=== PATIENT | male | born 1955 | race Caucasian/White ===

== ENCOUNTER 2017-05-11 10:55 | Day surgery (SDC) | payer BC ==
[2017-05-11] MEDS ORDERED: Lactated Ringers 1,000 ML IV SCH (11:00)
[2017-05-11] MEDS ORDERED: Sodium Chloride 0.9% 5 ML Syringe FLUSH PRN (11:00)
[2017-05-11] MEDS ORDERED: Propofol 200 MG/20 ML SDV ONE (13:19)
[2017-05-11] MEDS ORDERED: Midazolam 1 MG/ML 2 ML SDV ONE (13:19)
--- NOTE | 2017-05-11 14:02 | PCM.PN ---
- General Info Date of Service: 05/11/17 - Review of Systems Systems Review Comment:: 62 y/o male here for his first screening colonoscopy. He is medically stable to proceed. I have discussed the proposed colonoscopy with the patient. Risks such as but not limited to bleeding and GI injury discussed and he agrees to proceed. - Patient Data Vitals - Most Recent: Last Vital Signs Temp 97.7 F 05/11/17 11:46 Pulse 58 L 05/11/17 11:46 Resp 14 05/11/17 11:46 BP 114/70 05/11/17 11:46 Pulse Ox 97 05/11/17 11:46 Weight - Most Recent: 100.698 kg Med Orders - Current: Current Medications Lactated Ringer's (Ringers, Lactated) 1,000 mls @ 50 mls/hr IV ASDIRECTED EMILY Last Admin: 05/11/17 12:04 Dose: 50 mls/hr Sodium Chloride (Syrex Flush) 5 ml FLUSH Q8HR PRN PRN Reason: Keep Vein Open - Problem List Review Problem List Initiated/Reviewed/Updated: Yes - My Orders Last 24 Hours: My Active Orders 05/11/17 11:00 Patient to Empty Bladder [RC] ASDIRECTED Peripheral IV Care [RC] . DIRECTED Verify Patient Consent Obtain [RC] ASDIRECTED Lactated Ringers [Ringers, Lactated] 1,000 ml IV ASDIRECTED Sodium Chloride 0.9% [Syrex Flush] 5 ml FLUSH Q8HR PRN Peripheral IV Insertion Adult [OM.PC] Routine 05/11/17 Breakfast Nothing Per Oral Diet [DIET] - Assessment Assessment:: Colon Cancer Screening - Plan Plan:: Colonoscopy
[2017-05-11] MEDS ORDERED: Propofol 200 MG/20 ML SDV IV ONE (14:16)
[2017-05-11] MEDS ORDERED: Midazolam 1 MG/ML 2 ML SDV IV ONE (14:16)
--- NOTE | 2017-05-11 14:54 | PCM.OPNOTE ---
- General Post-Op/Procedure Note Date of Surgery/Procedure: 05/11/17 Operative Procedure(s): Colonoscopy with Polypectomy Findings: Small Cecal Polyp Pre Op Diagnosis: Colon Cancer Screening Post-Op Diagnosis: Colon Polyp Anesthesia Technique: MAC Primary Surgeon: Mando Rosenbaum Pathology: Cecal Polyp Output, Urine Amount: 0 EBL in mLs: 0 Complications: None Condition: Good
--- NOTE | 2017-05-11 19:17 | OR ---
DATE OF SURGERY: 05/11/2017 SURGEON: Mando Rosenbaum MD REFERRING PROVIDER: JAYLYN Veliz PREOPERATIVE DIAGNOSIS: Colon cancer screening. POSTOPERATIVE DIAGNOSIS: Colon polyp. OPERATION PERFORMED: Colonoscopy with polypectomy. INDICATIONS FOR SURGERY: This patient is seen today for his initial screening colonoscopy. He denies a family history of colon cancer. He has not had any previous colon exam. FINDINGS: A single polyp was noted in the colon today, it is in the cecum, it is irregular in shape, and 7 mm in size. The remainder of the colon appears normal. PROCEDURE: The patient was taken to the operating room. He was given intravenous sedation, and with him in the left lateral decubitus position, digital rectal exam was performed showing no rectal masses. The Olympus colonoscope was inserted into the rectum and retroflexed examination of the rectal canal was performed. The scope was then carefully advanced under direct visualization through the entire length of the colon until cecum was reached. Cecal acquisition is confirmed by noting the normal internal cecal anatomy including the appendiceal orifice and the ileocecal valve, and also noting the light to transilluminate the abdominal wall in the right lower quadrant. The ileocecal valve was cannulated, and the terminal ilium also examined which appeared normal. In the cecum, the above-described polyp was identified. It was removed with a cautery snare and retrieved into a polyp trap. The scope was then slowly withdrawn sequentially re-examining the colonic segments. Once the entire colon and rectum had been fully examined, the scope was removed, and the patient was taken from the operating room in satisfactory condition. ESTIMATED BLOOD LOSS: Zero. COMPLICATIONS: None. PROGNOSIS: Good. /[id number]/MODL
== END 2017-05-11 15:45 | disposition home or self-care (01) ==
LOC: KA.SDS 10:55
PROVIDERS: ATTEND Surgery
DX: Z12.11 Encounter for screening for malignant neoplasm of colon (principal); D12.0 Benign neoplasm of cecum; K21.9 Gastro-esophageal reflux disease without esophagitis; Z79.899 Other long term (current) drug therapy
CPT/HCPCS: 45385; J2250; J2704; J7120

== ENCOUNTER 2023-09-21 09:41 | Emergency (ER) | payer MEDICARE, OTHER ==
[2023-09-21] MEDS ORDERED: Sodium Chloride 0.9% 10 ML Syringe FLUSH PRN (09:58)
[2023-09-21 10:04] LABS: BASOPHILS ABSOLUTE AUTO 0.03 10^3/uL (0.00-0.10); BASOPHILS PERCENT AUTO 0.4 % (0.0-1.0); EOSINOPHILS ABSOLUTE AUTO 0.14 10^3/uL (0.10-0.30); EOSINOPHILS PERCENT AUTO 1.8 % (1.0-3.0); HEMATOCRIT 46.7 % (40.0-52.0); IMMATURE GRAN ABSOLUTE AUTO 0.02 10^3/uL (0.00-0.50); IMMATURE GRAN PERCENT AUTO 0.3 % (0.0-5.0); LYMPHOCYTES ABSOLUTE AUTO 0.52 10^3/uL (1.00-4.00); LYMPHOCYTES PERCENT AUTO 6.8 % (20.0-40.0); MEAN CORPUSCULAR HEMOGLOBIN 31.1 pg (27.0-31.0); MEAN CORPUSCULAR HGB CONC 34.3 g/dL (32.0-36.0); MEAN CORPUSCULAR VOLUME 90.9 fL (82.0-92.0); MEAN PLATELET VOLUME 9.5 fL (7.4-10.4); MONOCYTES ABSOLUTE AUTO 0.35 10^3/uL (0.10-0.80); MONOCYTES PERCENT AUTO 4.6 % (2.0-8.0); NEUTROPHILS ABSOLUTE AUTO 6.58 10^3/uL (2.50-7.00); NEUTROPHILS PERCENT AUTO 86.1 % (50.0-70.0); PLATELET COUNT,PLT 280 10^3/uL (150-400); RED BLOOD CELL COUNT 5.14 10^6/uL (4.50-6.00); WHITE BLOOD CELL COUNT,WBC 7.64 10^3/uL (5.00-10.00)
[2023-09-21] MEDS: Ondansetron 4 MG/2 ML SDV IVPUSH ONE (10:10)
[2023-09-21] MEDS: HYDROmorphone 1 MG/ML Syringe IVPUSH ONE (10:12)
[2023-09-21] MEDS: Sodium Chloride 0.9% 1,000 ML IV ONE (10:12)
[2023-09-21 10:19] LABS: ALBUMIN 3.52 g/dL (3.40-5.00); ANION GAP 14.7 mmol/L (5-15); BILIRUBIN TOTAL 0.7 mg/dL (0.2-1.0); CALCIUM 8.3 mg/dL (8.7-10.3); CARBON DIOXIDE,CO2 24.9 mmol/L (21.0-32.0); CREATININE 1.15 mg/dL (0.51-1.17); EST CRCL DRUG DOSING (CG) 65.24 mL/min; POTASSIUM,K 3.6 mmol/L (3.5-5.1); PROTEIN TOTAL,TP 6.4 g/dL (6.4-8.2)
[2023-09-21 10:40] VITALS: BP 151/82; PULSE 63
[2023-09-21] MEDS: Iopamidol 755 Mg/ML 100 ML Bottle IV ONE (12:13)
[2023-09-21] MEDS: Sodium Chloride 0.9% 50 ML IV SCH (12:14)
[2023-09-21] MEDS: Ketorolac 30 MG/ML SDV IVPUSH ONE (12:34)
== END 2023-09-21 12:44 | disposition home or self-care (01) ==
LOC: KA.ED 09:41
DX: R10.13 Epigastric pain (principal); K82.8 Other specified diseases of gallbladder; Z79.899 Other long term (current) drug therapy
CPT/HCPCS: 36415; 74177; 80053; 82150; 83690; 85025; 96361; 96374; 96375; 99284; 99284-25; J1170; J1885; J2405; J3490; J7030; Q9967